=== PATIENT | female | born 1980 | race Hispanic/Latino ===

== ENCOUNTER 2020-10-10 21:00 | Emergency (ER) | payer SELFPAY ==
[~2020-10-10 21:00] MED LIST: Iopamidol 370 76% 100 ML VIAL ONE
[2020-10-10 21:35] LABS: Bacteria/HPF None Seen HPF (None Seen); Bilirubin Negative (Negative); Blood, Urine 3+ (Negative); Clarity Turbid (Clear); Glucose, Urine (Dipstick) Normal (Negative); Ketone, Urine Negative (Negative); Leukocyte 75 Leu/uL (Negative); Nitrite Negative (Negative); Protein, Urine (Dipstick) 10 mg/dL (Neg-Trace); RBC/HPF Greater than 50 HPF (0-3); Squamous Epithelial 0-3 HPF (0-3); Urobilinogen Normal mg/dL (Less than 2); pH, Urine 6.5 (5.0-9.0)
[2020-10-10 21:47] LABS: Hemoglobin 10.8 g/dL (12.0-16.0); Mean Corpuscular HGB CONC 32.2 g/dL (32.0-36.0); Mean Corpuscular Hemoglobin 22.6 pg (27.0-31.0); Mean Corpuscular Volume 70.1 fL (78.0-98.0); Mean Platelet Volume 8.7 fL (7.4-10.4); Platelet Count 444 thou/uL (130-400); RBC Distribution Width 16.3 % (11.5-14.5); Red Blood Cell (RBC) Count 4.79 mill/uL (4.20-5.40); White Blood Cell (WBC) Count 10.8 thou/uL (4.8-10.8)
[2020-10-10 22:02] LABS: ALT (SGPT) 15 U/L (8-55); AST (SGOT) 13 U/L (5-34); Albumin 3.8 g/dL (3.5-5.0); Alkaline Phosphatase 93 U/L (40-110); Anion Gap 14 mmol/L (10-20); BUN (Urea Nitrogen) 7 mg/dL (7.0-18.7); Bilirubin, Total 0.2 mg/dL (0.2-1.2); Calc. Creatinine Clearance 0 mL/min (70-130); Calcium 8.6 mg/dL (7.8-10.44); Carbon Dioxide 25 mmol/L (22-29); Chloride 108 mmol/L (98-107); Globulin 3.7 g/dL (2.4-3.5); Glucose 111 mg/dL (70-105); Lipase 8 U/L (8-78); Potassium 3.6 mmol/L (3.5-5.1); Protein, Total 7.5 g/dL (6.0-8.3); Sodium 143 mmol/L (136-145)
[2020-10-10] MEDS ORDERED: Morphine 4 MG/ML VIAL ONE (22:03)
[2020-10-10] MEDS ORDERED: Ondansetron PF 4 MG/2 ML Vial ONE (22:03)
[2020-10-10 22:05] LABS: BHCG - Serum Negative (NEGATIVE); Pregs Control Background? CLEAR/WHITE (CLR/WHITE); Pregs Control Bar Appear? YES (CONTROL BAR)
[2020-10-10 22:08] LABS: #Basophils 0.1 thou/uL (0.0-0.2); #Eosinphils 0.3 thou/uL (0.0-0.7); #Lymphocytes 2.5 thou/uL (1.20-3.40); #Monocytes 0.5 thou/uL (0.11-0.59); #Neutrophils 7.4 thou/uL (1.40-6.50); %Basophils 0.5 % (0.0-1.0); %Eosinophils 2.6 % (0.0-10.0); %Lymphocytes 23.4 % (21.0-51.0); %Neutrophils 68.6 % (42.0-75.0); Anisocytosis SLIGHT = 6-15 cells (100X) (0-5/hpf); MDiff Complete? YES
[2020-10-10] MEDS ORDERED: Ketorolac Tromethamine 30 MG/ML VIAL ONE (22:16)
[2020-10-10 22:29] LABS: Pregnancy Test - Urine (BHCG) Negative (Negative)
[2020-10-10 22:30] LABS: Pregu Control Background? CLEAR/WHITE (CLR/WHITE); Pregu Control Bar Appear? YES (CONTROL BAR)
--- NOTE | 2020-10-10 23:20 | CT ---
CT ABDOMEN AND PELVIS WITH IV CONTRAST 10/10/2020 CLINICAL INFORMATION: Abdominal pain. History of cholecystectomy. COMPARISON: None. Technique: Multiple contiguous axial CT images are obtained through the abdomen and pelvis with IV contrast. Cor onal reformatted images are provided. FINDINGS: Lower Chest: Lung bases are clear. Vessels: Abdominal aorta is normal in caliber. Abdomen: Portal vein:Patent. However there does appear to be dilatation of a portion of the left portal vein c ould be related to a venous shunt. Gallbladder: Surgically absent. Liver: A 1.2 cm hypodense structure seen in the lateral segment left hepatic lobe which is difficult to accurately characterize due to small size. Spleen: within normal limits. Pancreas: within normal limits. Adrenals: within normal limits. Kidneys: within normal limits. Bowel: Evidence of colonic diverticulosis. Multiple prominent loops of small bowel are seen in left a bdomen, but this could be related to peristalsis. There are no findings to suggest a bowel obstruction. There is a large ventral abdominal wall hernia which contains multiple loops of small nely wel. The hernia defect in this region measures approximately 3.6 cm. An additional large fat-containing ventral abdominal wall hernia is present further superiorly in a supraumbilical locati on. Appendix: The appendix is visualized and normal in caliber. Peritoneum: No ascites or free air; no fluid collection. Mesentery and Retroperitoneum: No enlarged mesenteric or retroperitoneal lymph nodes. Abdominal Wall: Ventral abdominal hernias as described above which contains loops of small bowel. Pelvis: Reproductive Organs: There is evidence of bilateral tubal ligation. A left adnexal hypodense cystic l esion measuring 3.9 cm is seen which does demonstrate attenuation coefficient most suggestive of a cyst. A small low-density area seen in the right ovary likely due to small cyst or dominant follicle. Bladder: Incompletely distended. Bones: No suspicious lytic or sclerotic osseous lesions. IMPRESSION: 1. Large ventral abdominal wall hernias one of which is located near the level of the umbilicus which contains multiple loops of small bowel without evidence of a bowel obstruction. An additional fat-containing ventral abdominal wall hernia seen just superior to this location. 2. Left ovarian cyst. 3. Evidence of cholecystectomy. 4. Colonic diverticulosis. 5. Difficult to characterize hypodense lesion left hepatic lobe. 6. Tubular enhancing structure in the left hepatic lobe which does appear contiguous with the portal vein and could be related to a portal venous shunt. 7. No acute findings in the abdomen or pelvis.
[2020-10-10] MEDS ORDERED: Haloperidol Lactate 5 MG/ML VIAL ONE (23:33)
[2020-10-10] MEDS ORDERED: diphenhydrAMINE 50 MG/ML VIAL ONE (23:33)
== END 2020-10-11 00:06 | disposition home or self-care (01) ==
LOC: ERS 21:00
DX: R10.31 Right lower quadrant pain (principal); R10.33 Periumbilical pain; I10 Essential (primary) hypertension
CPT/HCPCS: 36415; 74177; 80053; 81003; 81015; 81025; 83690; 84703; 85025; 96374; 96375; J1200; J1630; J1885; J2270; J2405; Q9967

== ENCOUNTER 2020-10-19 17:17 | Emergency (ER) | payer SELFPAY ==
[2020-10-19 20:28] LABS: #Basophils 0.1 thou/uL (0.0-0.2); #Eosinphils 0.1 thou/uL (0.0-0.7); #Lymphocytes 2.7 thou/uL (1.20-3.40); #Monocytes 0.4 thou/uL (0.11-0.59); #Neutrophils 3.5 thou/uL (1.40-6.50); %Basophils 0.9 % (0.0-1.0); %Eosinophils 1.9 % (0.0-10.0); %Lymphocytes 39.3 % (21.0-51.0); %Monocytes 5.6 % (0.0-10.0); %Neutrophils 52.3 % (42.0-75.0); Hemoglobin 11.2 g/dL (12.0-16.0); Mean Corpuscular HGB CONC 31.5 g/dL (32.0-36.0); Mean Corpuscular Hemoglobin 21.9 pg (27.0-31.0); Mean Corpuscular Volume 69.5 fL (78.0-98.0); Mean Platelet Volume 9.2 fL (7.4-10.4); Platelet Count 381 thou/uL (130-400); RBC Distribution Width 16.1 % (11.5-14.5); Red Blood Cell (RBC) Count 5.13 mill/uL (4.20-5.40); White Blood Cell (WBC) Count 6.7 thou/uL (4.8-10.8)
--- NOTE | 2020-10-19 20:31 | RAD ---
Portable frontal chest radiograph: 10/19/2020 COMPARISON: None HISTORY: Shortness of breath FINDINGS: Lungs are clear. Heart and mediastinal contours appear within normal limits. IMPRESSION: No acute findings.
[2020-10-19 20:46] LABS: Anion Gap 14 mmol/L (10-20); BUN (Urea Nitrogen) 5 mg/dL (7.0-18.7); Calc. Creatinine Clearance 0 mL/min (70-130); Calcium 8.6 mg/dL (7.8-10.44); Carbon Dioxide 26 mmol/L (22-29); Chloride 105 mmol/L (98-107); Glucose 98 mg/dL (70-105); Potassium 3.8 mmol/L (3.5-5.1); Sodium 141 mmol/L (136-145)
[2020-10-20 05:56] LABS: SARS-CoV-2 MS2 Negative; SARS-CoV-2 N Gene Positive; SARS-CoV-2 S Gene Positive; SARS-CoV-2 by NAA DETECTED (NotDetected); SARS-CoV-2 orf1ab Positive
--- NOTE | 2020-10-23 10:20 | EKG ---
Test Reason : Blood Pressure : / mmHG Vent. Rate : 098 BPM Atrial Rate : 098 BPM P-R Int : 124 ms QRS Dur : 114 ms QT Int : 370 ms P-R-T Axes : 032 -02 -03 degrees QTc Int : 472 ms Normal sinus rhythm Incomplete right bundle branch block Inferior infarct , age undetermined Abnormal ECG Confirmed by SOHA LEVI ([id number]), advertising editor AMY CALVILLO ([id number]) on 10/23/2020 10:20:16 AM Referred By: Confirmed By:SOHA Burnham
== END 2020-10-19 21:42 | disposition home or self-care (01) ==
LOC: ERS 17:17
DX: U07.1 COVID-19 (principal); I10 Essential (primary) hypertension
CPT/HCPCS: 36415; 71045; 80048; 84484; 85025; 85379; 87635; 93005; U0003; U0005

== ENCOUNTER 2020-12-09 14:49 | Emergency (ER) | payer SELFPAY ==
[2020-12-09 15:53] LABS: Bilirubin Negative (Negative); Blood, Urine Negative (Negative); Clarity Clear (Clear); Glucose, Urine (Dipstick) Normal (Negative); Ketone, Urine Negative (Negative); Leukocyte Negative Leu/uL (Negative); Nitrite Negative (Negative); Protein, Urine (Dipstick) Negative (Neg-Trace); Specific Gravity, Urine 1.004 (1.002-1.036); Urobilinogen Normal mg/dL (Less than 2)
[2020-12-09 15:55] LABS: #Eosinphils 0.2 thou/uL (0.0-0.7); #Lymphocytes 2.4 thou/uL (1.20-3.40); #Monocytes 0.5 thou/uL (0.11-0.59); #Neutrophils 4.6 thou/uL (1.40-6.50); %Basophils 0.4 % (0.0-1.0); %Eosinophils 2.6 % (0.0-10.0); %Lymphocytes 30.7 % (21.0-51.0); %Monocytes 6.4 % (0.0-10.0); %Neutrophils 59.9 % (42.0-75.0); Mean Corpuscular Hemoglobin 23.1 pg (27.0-31.0); Mean Corpuscular Volume 70.1 fL (78.0-98.0); Mean Platelet Volume 9.1 fL (7.4-10.4); Platelet Count 368 thou/uL (130-400); RBC Distribution Width 15.8 % (11.5-14.5); Red Blood Cell (RBC) Count 4.32 mill/uL (4.20-5.40); White Blood Cell (WBC) Count 7.7 thou/uL (4.8-10.8)
[2020-12-09 15:55] LABS: Pregnancy Test - Urine (BHCG) Negative (Negative); Pregu Control Background? CLEAR/WHITE (CLR/WHITE); Pregu Control Bar Appear? YES (CONTROL BAR); Specific Gravity 1.004 (1.002-1.036)
[2020-12-09] MEDS ORDERED: Ondansetron PF 4 MG/2 ML Vial ONE (16:33)
[2020-12-09] MEDS ORDERED: Morphine 4 MG/ML VIAL ONE (16:33)
[2020-12-09 16:36] LABS: ALT (SGPT) 13 U/L (8-55); AST (SGOT) 10 U/L (5-34); Albumin 3.8 g/dL (3.5-5.0); Alkaline Phosphatase 77 U/L (40-110); Anion Gap 15 mmol/L (10-20); BUN (Urea Nitrogen) 8 mg/dL (7.0-18.7); Bilirubin, Total 0.6 mg/dL (0.2-1.2); Calc. Creatinine Clearance 0 mL/min (70-130); Calcium 8.6 mg/dL (7.8-10.44); Carbon Dioxide 24 mmol/L (22-29); Chloride 109 mmol/L (98-107); Globulin 2.8 g/dL (2.4-3.5); Glucose 128 mg/dL (70-105); Lipase 7 U/L (8-78); Potassium 3.5 mmol/L (3.5-5.1); Protein, Total 6.6 g/dL (6.0-8.3); Sodium 144 mmol/L (136-145)
--- NOTE | 2020-12-11 16:11 | EKG ---
Test Reason : Blood Pressure : / mmHG Vent. Rate : 085 BPM Atrial Rate : 085 BPM P-R Int : 122 ms QRS Dur : 126 ms QT Int : 406 ms P-R-T Axes : 028 004 037 degrees QTc Int : 483 ms Sinus rhythm with Premature supraventricular complexes Non-specific intra-ventricular conduction block Abnormal ECG Confirmed by MARY ANNE MARTINEZ DO ([id number]), image editor AMY CALVILLO ([id number]) on 12/11/2020 4:11:35 PM Referred By: Confirmed By:MARY ANNE MARTINEZ DO
== END 2020-12-09 18:15 | disposition home or self-care (01) ==
LOC: ERS 14:49
DX: R10.33 Periumbilical pain (principal); R51.9 Headache, unspecified; I10 Essential (primary) hypertension
CPT/HCPCS: 36415; 80053; 81003; 81025; 83690; 85025; 93005; 96374; 96375; J2270; J2405

== ENCOUNTER 2022-02-21 09:50 | Inpatient (IN) | payer MEDICAID, SELFPAY ==
[2022-02-21 10:20] LABS: #Eosinphils 0.2 thou/uL (0.0-0.7); #Monocytes 0.3 thou/uL (0.11-0.59); #Neutrophils 5.5 thou/uL (1.40-6.50); %Eosinophils 2.2 % (0.0-10.0); %Lymphocytes 25.4 % (21.0-51.0); %Monocytes 3.8 % (0.0-10.0); %Neutrophils 68.6 % (42.0-75.0); Mean Corpuscular HGB CONC 32.1 g/dL (32.0-36.0); Mean Corpuscular Hemoglobin 23.5 pg (27.0-31.0); Mean Corpuscular Volume 73.1 fL (78.0-98.0); Mean Platelet Volume 8.9 fL (7.4-10.4); Platelet Count 338 thou/uL (130-400); RBC Distribution Width 17.5 % (11.5-14.5); Red Blood Cell (RBC) Count 4.68 mill/uL (4.20-5.40)
[2022-02-21 10:41] LABS: ALT (SGPT) 11 U/L (8-55); AST (SGOT) 9 U/L (5-34); Albumin 3.9 g/dL (3.5-5.0); Alkaline Phosphatase 78 U/L (40-110); Anion Gap 13 mmol/L (10-20); BUN (Urea Nitrogen) 4 mg/dL (7.0-18.7); Bilirubin, Total 0.7 mg/dL (0.2-1.2); Calc. Creatinine Clearance 0 mL/min (70-130); Calcium 8.8 mg/dL (7.8-10.44); Carbon Dioxide 23 mmol/L (22-29); Chloride 108 mmol/L (98-107); Globulin 3.2 g/dL (2.4-3.5); Glucose 117 mg/dL (70-105); Potassium 3.4 mmol/L (3.5-5.1); Protein, Total 7.1 g/dL (6.0-8.3); Sodium 141 mmol/L (136-145)
[2022-02-21 10:49] LABS: Bacteria/HPF None Seen HPF (None Seen); Bilirubin Negative (Negative); Blood, Urine 2+ (Negative); Clarity Clear (Clear); Glucose, Urine (Dipstick) Normal (Negative); Ketone, Urine Negative (Negative); Leukocyte 250 Leu/uL (Negative); Nitrite Negative (Negative); Protein, Urine (Dipstick) Negative (Neg-Trace); RBC/HPF 0-3 HPF (0-3); Specific Gravity, Urine 1.012 (1.002-1.036); Squamous Epithelial 0-3 HPF (0-3); Urobilinogen Normal mg/dL (Less than 2); WBC/HPF 0-3 HPF (0-3)
[2022-02-21] MEDS ORDERED: Nitroglycerin 2% Ointment 1 INCH/1 GM Packet ONE (10:56)
[2022-02-21 10:59] LABS: Hypochromia SLIGHT = 6-15 cells (100X) (0-5/hpf); MDiff Complete? YES; Microcytosis SLIGHT = 6-15 cells (100X) (0-5/hpf); Platelet Morphology Comment Appears Adequate; Polychromasia SLIGHT = 2-3 cells (100X) (0-2/hpf)
[2022-02-21] MEDS ORDERED: Aspirin Chewable 81 MG TAB ONE (13:08)
[2022-02-21] MEDS ORDERED: Nitroglycerin 0.4 MG TAB (25 Tab Bottle) SL PRN (13:37)
[2022-02-21 13:40] LABS: Troponin I Less than 0.010 ng/mL (< 0.028)
[2022-02-21] MEDS ORDERED: Ondansetron ODT 4 MG TAB PO PRN (13:43)
[2022-02-21] MEDS: Acetaminophen 325 MG TAB PO PRN ×2 (15:02→20:52)
[2022-02-21 16:24] LABS: Troponin I Less than 0.010 ng/mL (< 0.028)
[2022-02-21 21:47] LABS: SARS-CoV-2 PCR by NAA Not Detected (NotDetected)
[2022-02-22] MEDS ORDERED: Potassium Chloride 20 MEQ TAB PO SCH (08:00)
[2022-02-22] MEDS: Aspirin Chewable 81 MG TAB PO SCH (09:39)
[2022-02-22] MEDS ORDERED: Regadenoson 0.4 MG/5 ML SYRINGE ONE (09:39)
[2022-02-22] MEDS: Acetaminophen 325 MG TAB PO PRN ×2 (13:19→18:06)
[2022-02-23 05:04] LABS: Anion Gap 15 mmol/L (10-20); BUN (Urea Nitrogen) 9 mg/dL (7.0-18.7); Calc. Creatinine Clearance 269 mL/min (70-130); Calcium 8.9 mg/dL (7.8-10.44); Carbon Dioxide 22 mmol/L (22-29); Chloride 108 mmol/L (98-107); Glucose 103 mg/dL (70-105); Potassium 4.1 mmol/L (3.5-5.1); Sodium 141 mmol/L (136-145)
[2022-02-23] MEDS: Acetaminophen 325 MG TAB PO PRN ×2 (08:15→13:20)
[2022-02-23] MEDS: Aspirin Chewable 81 MG TAB PO SCH (08:16)
[2022-02-23 11:58] VITALS: BP 175/104; TEMP 97.9
[2022-02-23] MEDS ORDERED: Lisinopril 20 MG TAB PO SCH (13:00)
== END 2022-02-23 13:38 | disposition home or self-care (01) | DRG 313 ==
LOC: ERS 09:50 → 2SW 12:46 → OBSVTOIN 02-22 15:42
PROVIDERS: ADMIT Internal Medicine; ATTEND Internal Medicine
DX: R07.9 Chest pain, unspecified (principal); Z68.43 Body mass index [BMI] 50.0-59.9, adult; I50.32 Chronic diastolic (congestive) heart failure; Z20.822 Contact with and (suspected) exposure to COVID-19; E78.5 Hyperlipidemia, unspecified; K42.9 Umbilical hernia without obstruction or gangrene; E66.01 Morbid (severe) obesity due to excess calories; F32.A Depression, unspecified; I11.0 Hypertensive heart disease with heart failure; Z90.49 Acquired absence of other specified parts of digestive tract
CPT/HCPCS: 36415; 70450; 71045; 78452; 80048; 80053; 81003; 81015; 84484; 84702; 85025; 93005; 93017; 93306; 94760; A9500; J2785; U0003; U0005